=== PATIENT | male | born 1955 | race Caucasian/White ===

== ENCOUNTER 2016-11-04 16:55 | Emergency (ER) | payer MEDICARE, OTHER ==
[~2016-11-04] VITALS: Wt 75.0 kg
[~2016-11-04 16:55] MED LIST: DIPH12.559; FLUO10CA66; PROLIX5; [UNRECOGNIZED DRUG - REMARK]
--- NOTE | 2016-11-04 18:24 | RADRPT ---
PROCEDURE: XR Chest. CLINICAL INDICATION: Shortness of breath. TECHNIQUE: Single frontal view. COMPARISON: None. FINDINGS: The lungs are clear. The heart size is normal. There is no pleural effusion. There is no pneumothorax. IMPRESSION: 1. Normal chest radiograph. RPTAT: QQ .Akil Marsh MD, Date Time Electronically viewed and signed by .Akil Marsh MD, on 11/04/2016 18:24 .R/
[2016-11-04] MEDS ORDERED: HALOPERIDOL 5 MG INJ IM STA (18:38)
--- NOTE | 2016-11-04 18:38 | ERD ---
ER Documentation Chief Complaint Date/Time DATE: 11/04/16 TIME: 18:33 Chief Complaint FLU LIKE SYMPTOMS AND COUGHING, NO DISTRESS. HPI This is a 60-year-old homeless male that presents to the emergency department with a nonproductive cough. He indicates that the cough has been present for several days. He has had no fevers or shaking or chills. He denies any night sweats or weight loss. He denies any hemoptysis hematemesis or melanotic stools. The patient indicates his main reason for coming to the emergency department is that he is wet and cold and once a warm place to sleep as it is currently raining outside. He indicates he recently was staying at a homeless intermediate but given that it is late in the evening he was unable to get there in time to receive a bed for the evening. He denies a headache or changes in vision. He denies any recent remote blunt or penetrating head chest or abdominal trauma. ROS All systems reviewed and are negative except as per history of present illness. Medications Home Meds Discontinued Reported Medications [Does Not Remember Meds] No Conflict Check 08/27/12 Diphenhydramine Hcl (Benadryl) 12.5 Mg/Strip Strip 12/18/10 Fluoxetine Hcl* (Prozac*) 10 Mg Capsule 12/18/10 Fluphenazine Hcl* (Prolixin*) 5 Mg Tab 12/18/10 Allergies Allergies: Coded Allergies: temazepam (Verified Allergy, Mild, 12/18/10) aripiprazole (Verified Allergy, Unknown, 11/04/16) risperidone (Verified Allergy, Unknown, 11/04/16) PMhx/Soc History of Surgery: No Anesthesia Reaction: No Hx Neurological Disorder: No Hx Respiratory Disorders: Yes (COPD) Hx Cardiac Disorders: Yes (HTN) Hx Psychiatric Problems: Yes (SCHIZO) Hx Miscellaneous Medical Probl: No Hx Alcohol Use: Yes (OCCASSIONAL) Hx Tobacco Use: Yes Physical Exam Vitals Vital Signs Date Time Temp Pulse Resp B/P Pulse Ox O2 Delivery O2 Flow Rate FiO2 11/04/16 17:03 98.8 110 22 154/88 98 Physical Exam Constitutional:Well-developed. Disheveled male in no respiratory distress HEENT:Normocephalic. Atraumatic.Pupils were equal round reactive to light. Moist mucous membranes.No tonsillar exudates. Neck: No nuchal rigidity. No lymphadenopathy. No posterior cervical spine tenderness or step-offs. Respiratory: Not using accessory muscles of respiration.Lungs were clear to auscultation bilaterally. No rhonchi. No rales. No wheezing. Cardiovascular: Regular rate regular rhythm.No murmurs. No rubs were appreciated.S1, S2 normal. Distal pulses are palpable 2+ bilaterally. GI: Abdomen was soft. Nontender. Non Distended. No pulsatile abdominal masses or bruits. No rebound. No guarding. Bowel sounds were present and normal. Muscle skeletal: Full range of motion of both the upper and lower extremities bilaterally.Normal muscle tone.No assymetrical calf tenderness or swelling. Skin: No petechia, no purpura. No lesions on the palms or the soles of the feet. No maculopapular rash. NEURO: Patient was alert, awake, orientated x3.No facial droop. Gait observed and normal with no ataxia.Speech had regular rate and rhythm. No focal neurological deficits. Procedures/MDM This patient presented to the emergency department with a nonproductive cough. I obtained a chest radiograph which showed no infiltrates pneumothorax or pleural effusions. There is no risk factors physical exam findings to suggest tuberculosis. The patient had no suicidal or homicidal thoughts ideations and he stated his main reason for coming to the emergency department was to receive warm closed and a place to sleep. He was given a meal in the emergency department and resources for homeless intermediate. He was tachycardic upon arrival to the emergency department and therefore obtained ancillary laboratory work which showed no severe electrolyte abnormalities. He did receive IM Haldol as he appeared to become more anxious and was walking around the emergency department disrupting other patients as he was asking them for food. Again the patient did not appear to be a threat to himself or others and he was not in acute psychosis. He was not given Ativan as he has an allergy to his temazepam and was unable to articulate the adverse effects that occurs when he takes temazepam Departure Diagnosis: Primary Impression: Cough Condition: Fair Patient Instructions: Bronchitis, No Antibiotic (Adult) ANABEL MATHEWS Nov 04, 2016 18:38
[2016-11-04 19:05] LABS: BASOPHIL # 0.1 10^3/ul (0.0-0.1); BASOPHILS % 0.6 % (0.0-2.0); EOSINOPHILS # 0.1 10^3/ul (0.0-0.5); EOSINOPHILS % 1.4 % (0.0-7.0); HEMATOCRIT 37.8 % (42.0-52.0); HEMOGLOBIN 12.9 g/dl (14.0-18.0); LYMPHOCYTES % 20.4 % (15.0-51.0); MEAN CORPUSCULAR HEMOGLOBIN 32.2 pg (29.0-33.0); MEAN CORPUSCULAR HGB CONC 34.1 g/dl (32.0-37.0); MEAN CORPUSCULAR VOLUME 94.4 fl (82.0-101.0); MEAN PLATELET VOLUME 7.3 fl (7.4-10.4); MONOCYTES % 10.5 % (0.0-11.0); NEUTROPHIL # 6.5 10^3/ul (1.6-7.5); NEUTROPHILS % 67.1 % (39.0-77.0); PLATELET COUNT 200 10^3/UL (140-440); RED BLOOD COUNT 4.01 10^6/ul (4.70-6.10); RED CELL DISTRIBUTION WIDTH 14.1 % (11.5-14.5); UNCORRECTED WBC 9.7 10^3/ul (4.8-10.8); WHITE BLOOD COUNT 9.7 10^3/ul (4.8-10.8)
[2016-11-04 19:10] LABS: CONDITION 1
[2016-11-04 19:17] LABS: ALBUMIN 3.8 g/dl (3.3-4.9)
[2016-11-04 19:18] LABS: CHLORIDE 101 mmol/L (97-110); POTASSIUM 4.1 mmol/L (3.5-5.1); SODIUM 138 mmol/L (135-144)
[2016-11-04 19:20] LABS: ALANINE AMINOTRANSFERASE 32 IU/L (13-69); ALBUMIN/GLOBULIN RATIO 1.31; ALKALINE PHOSPHATASE 105 IU/L (42-121); ANION GAP 14 (8-16); ASPARTATE AMINO TRANSFERASE 41 IU/L (15-46); BILIRUBIN,INDIRECT 0.4 mg/dl (0-1.1); BILIRUBIN,TOTAL 0.4 mg/dl (0.2-1.3); BLOOD UREA NITROGEN 12 mg/dl (7-20); CARBON DIOXIDE 27 mmol/L (21-31); CREATININE 0.51 mg/dl (0.61-1.24); TOTAL PROTEIN 6.7 g/dl (6.1-8.1)
[2016-11-04 19:21] LABS: CALCIUM 9.7 mg/dl (8.4-10.2); GLUCOSE 128 mg/dl (70-220)
[2016-11-04 19:30] LABS: ACETAMINOPHEN < 10.0 ug/ml (10.0-30.0); ETHANOL < 10.0 mg/dl; SALICYLATE < 1.0 mg/dl (5.0-30.0)
[2016-11-04] MEDS ORDERED: DIPHENHYDRAMINE 50 MG INJ IM ONE (20:00)
[2016-11-04 20:47] VITALS: BP 144/76; PULSE 88; RESP 20; TEMP 98
== END 2016-11-04 20:48 | disposition home or self-care (01) ==
LOC: E/R 16:55
DX: R05 Cough (principal); I10 Essential (primary) hypertension; J44.9 Chronic obstructive pulmonary disease, unspecified; Z87.891 Personal history of nicotine dependence
CPT/HCPCS: 71010; 80053; 80306; 85025; 96372; 99284; J1200; J1630